=== PATIENT | male | born 1965 | race Caucasian/White ===

== ENCOUNTER 2025-08-29 08:07 | Day surgery (SDC) | payer MEDICAID ==
[~2025-08-29] VITALS: Ht 160 cm; Wt 98.0 kg
[2025-08-29] VITALS (8 sets, daily range): BP systolic 89–120; BP diastolic 56–80; PULSE 58–93; RESP 12–20; TEMP 98.3; O2SAT 94–97
[~2025-08-29 08:07] MED LIST: OMEP20CA16 PO; SUCR1TAB PO; simethicone 40mg/0.6ml oral drops 15ml ONE
[2025-08-29] MEDS: ringers solution, lacted 1,000 ML IV SCH (08:43)
[2025-08-29] MEDS ORDERED: propofol inj 20 ML IV ONE ×2 (11:20)
== END 2025-08-29 12:23 | disposition home or self-care (01) ==
LOC: GI LAB 08:07
PROVIDERS: ATTEND Internal Medicine Gastroenterology
DX: K92.1 Melena (principal); D13.30 Benign neoplasm of unspecified part of small intestine; E66.3 Overweight; F10.90 Alcohol use, unspecified, uncomplicated; F12.90 Cannabis use, unspecified, uncomplicated; Z98.0 Intestinal bypass and anastomosis status; Z98.890 Other specified postprocedural states; Z98.84 Bariatric surgery status; Z68.38 Body mass index [BMI] 38.0-38.9, adult; Z82.5 Family history of asthma and other chronic lower respiratory diseases; Y90.9 Presence of alcohol in blood, level not specified
CPT/HCPCS: 43239; J2704; J7120; Z7512; A4615